=== PATIENT | male | born 1960 | race Caucasian/White ===

== ENCOUNTER → 2017-12-14 | Outpatient (REF) | payer OTHER ==
[~2017-12-14] MED LIST: IBUP800T37 PO; LOR5/325 PO
[2017-12-14 11:36] LABS: PLATELET COUNT, AUTOMATED 309 K/uL (150-450)
== END ==
PROVIDERS: ATTEND Family Medicine
DX: R05 Cough (principal); R91.8 Other nonspecific abnormal finding of lung field
CPT/HCPCS: 82040; 82247; 82310; 82374; 82435; 82565; 82947; 84075; 84132; 84155; 84295; 84450; 84460; 84520; 85025

== ENCOUNTER → 2017-12-14 | Outpatient (CLI) | payer OTHER ==
[~2017-12-14] MED LIST changes: +IOPAMIDOL 76% 100 ML INFUS BTL 100 ML ONE; +NS(*) 0.9% 50 ML BAG 50 ML ONE
--- NOTE | 2017-12-14 14:38 | RADIOLOGY IMAGING REPORT ---
FACILITY: [facility] - [place] PATIENT NAME: Eliecer Helms : 1960 MR: [id number] V: [id number] EXAM DATE: ORDERING PHYSICIAN: DELILAH VIEIRA TECHNOLOGIST: Location: [facility] - [place] Patient: Eliecer Helms : 1960 Visit/Account:[id number] Date of Sevice: 12/14/2017 CT angiogram chest with contrast Indication: Cough Comparison: Chest radiograph December 14, 2017 Technique: Helical CT images are obtained through the chest after administration of 90 mL Isovue 370 IV contrast. Reformatted coronal and sagittal images were reviewed as well as coronal MIP images. One of the following dose optimization techniques was utilized in the performance of this exam: Autom ated exposure control; adjustment of the mA and/or kV according to the patient's size; or use of an i terative reconstruction technique. Specific details can be referenced in the facility's radiology C T exam operational policy. FINDINGS: Vasculature: Arising from the thoracic aorta a normal three-vessel arch configuration. No evidence of aortic aneurysm or dissection. No significant atherosclerotic changes. No evidence of filling defect s within the pulmonary arterial vasculature. Noted is air located within the nondependent portion of the main pulmonary artery likely secondary to IV access. Nonvascular findings: No pericardial effusion. No evidence of right ventricular heart strain. No path ologically enlarged mediastinal or hilar lymph nodes. The central airways are clear. No pneumothorax. No pleural effusion. Imaged portions of the abdomen are unremarkable. No acute osseous findings. IMPRESSION: 1. No evidence of pulmonary embolism. 2. No acute cardiopulmonary process. Report Dictated By: Nikolay Smith DO at 12/14/2017 2:15 PM Report E-Signed By: Nikolay Smith DO at 12/14/2017 2:34 PM WSN:[id number]
== END ==
LOC: CT 12:06
PROVIDERS: ATTEND Family Medicine
DX: R91.8 Other nonspecific abnormal finding of lung field (principal); R05 Cough
CPT/HCPCS: 71275; J7050; Q9967